=== PATIENT | male | born 1945 | race Caucasian/White ===

== ENCOUNTER 2016-07-31 23:17 | Emergency (ER) | payer OTHER ==
[~2016-07-31] VITALS: Ht 172.7 cm; Wt 84.1 kg
[~2016-07-31 23:17] MED LIST: ALTACE2.5 M1 PO; ASPIRIN E.C.81 M1 PO; ASPIRIN325 MG PO; ASPIRIN81 M1 PO; ATENOLOL25 MG PO; ATENOLOL50 MG PO; B-121000 MCG PO; CENTRUM COMPLE1 EACH PO; CENTRUM SILV1 TABLE1 PO; CENTRUM SILVER1 EAC3 PO; COBAL-10001000 MCG/2 SC; CRESTOR20 MG PO; CRESTOR40 MG PO; Colace PO; Ecotrin PO; FOLIC ACID XTR0.8 MG PO; Folic Acid PO; Folvite PO; GLIPIZIDE5 M1 PO; GLUCOPHAGE500 MG PO; Glucotrol PO; HYDROCODON-ACE1 EAC4 PO; LORTAB 10/501 TABLET PO; MEGACE 40 MG40 MG/ML PO; METFORMIN HCL500 MG PO; METHOTREXATE2.5 MG PO; NATURAL VITA100 UNIT PO; NITROGLYCERIN0.4 MG SL; NITROSTAT,NITR0.4 M1 SL; ORENCIA125 MG/1 M SQ; ORENCIA250 MG/10 SC; PLAVIX75 MG PO; REMERON15 M2 PO; Remeron PO; SPIRIVA1 INHALATI IH; VENTOLIN17 GM IH; VITAMIN B-1000 MCG/M IM
[2016-07-31 23:44] LABS: HEMATOCRIT 44.6 % (38.0-50.0); MCH 29.5 PG (29.0-34.0); MCHC 34.3 G/DL (30.0-36.0); MCV 85.9 FL (86-99); MEAN PLAT.VOLUME 11.7 uM^3 (9.0-12.4); PLATELET COUNT 91 K/uL (156-360); RBC DIS.WIDTH-CV 13.1 % (11.8-14.6); RBC DIS.WIDTH-SD 40.8 % (39-53); RED BLOOD COUNT 5.19 M/uL (4.00-5.50); WHITE BLOOD COUNT 7.9 K/uL (4.1-10.2)
[2016-07-31 23:56] LABS: CHLORIDE 105 mEq/L (99-109); POTASSIUM 4.7 mEq/L (3.7-5.4); SODIUM 139 mEq/L (136-147)
[2016-07-31 23:58] LABS: GLUCOSE 74 mg/dL (70-99)
[2016-07-31 23:59] LABS: ANION GAP 9 MEQ/L (2-14)
[2016-08-01] LABS: TOTAL BILIRUBIN 0.5 mg/dL (0.0-1.0)
[2016-08-01 00:02] LABS: ALKALINE PHOSPHATASE 70 IU/L (3-129); GFR ESTIMATE (CALCULATED) 40 mL/min/
[2016-08-01 00:03] LABS: UREA NITROGEN (BUN) 27 mg/dL (9-23)
[2016-08-01 03:02] LABS: ADD MIUA? YES; BILIRUBIN NEGATIVE; BLOOD NEGATIVE; COLOR YELLOW ((YELLOW)); GLUCOSE (STRIP) NEGATIVE; KETONES NEGATIVE; LEUKOCYTES TRACE; NITRITE NEGATIVE; PROTEIN (STRIP) TRACE; SPECIFIC GRAVITY 1.014 (1.000-1.030); UROBILINOGEN 0.2 MG/DL (0.2-1.0)
[2016-08-01 03:16] LABS: CREATINE KINASE 36 IU/L (1-294)
[2016-08-01 03:19] LABS: BACTERIA RARE; CASTS NONE SEEN /LPF; CRYSTALS NONE SEEN; EPITHELIAL CELLS RARE; MUCUS RARE; RED BLOOD CELLS 0-5 /HPF (0-5); UCUL ADDED? NO
[2016-08-01] MEDS ORDERED: PERCOCET 5/31 TABLET PO (04:27)
[2016-08-01 04:36] VITALS: BP 112/64
== END 2016-08-01 04:37 | disposition home or self-care (01) ==
LOC: EME 23:17
PROVIDERS: Emergency Medicine
DX: M54.16 Radiculopathy, lumbar region (principal); R25.2 Cramp and spasm; M79.604 Pain in right leg; M79.605 Pain in left leg; J44.9 Chronic obstructive pulmonary disease, unspecified; I10 Essential (primary) hypertension; E11.9 Type 2 diabetes mellitus without complications; Z95.1 Presence of aortocoronary bypass graft; Z79.02 Long term (current) use of antithrombotics/antiplatelets; Z79.82 Long term (current) use of aspirin; Z87.891 Personal history of nicotine dependence
CPT/HCPCS: 72131; 80053; 81003; 82550; 85025; 85027; 86850; 86900; 86901; 93970; 99281; 99285; J1100; J3010; J7030